=== PATIENT | female | born 1980 | race Caucasian/White ===

== ENCOUNTER 2020-11-05 09:07 | Emergency (ER) | payer OTHER ==
[~2020-11-05] VITALS: Ht 175.3 cm; Wt 81.6 kg
[~2020-11-05 09:07] MED LIST: KETO10TA2 PO; PRENATAL TABLE1 EAC1 PO; TAMS0.4C PO
== END 2020-11-05 16:13 | disposition home or self-care (01) ==
LOC: ER 09:07
DX: R10.31 Right lower quadrant pain (principal)

== ENCOUNTER 2021-01-14 20:09 | Inpatient (IN) | payer OTHER ==
[~2021-01-14] VITALS: Ht 175.3 cm; Wt 81.6 kg
[2021-01-14] MEDS ORDERED: AYGESTIN5 MG (20:27)
== END 2021-01-22 18:27 | disposition home or self-care (01) | DRG 743 ==
LOC: ER 20:09 → OB/GYN 01-15 18:20
PROVIDERS: ADMIT Student in an Organized Health Care Education/Training Program; ATTEND Student in an Organized Health Care Education/Training Program
PROC: 0UDB8ZX Extraction of Endometrium, Via Natural or Artificial Opening Endoscopic, Diagnostic (ICD-10-PCS; 2021-01-16)
PROC: 30233N1 Transfusion of Nonautologous Red Blood Cells into Peripheral Vein, Percutaneous Approach (ICD-10-PCS; 2021-01-16)
PROC: 0UB70ZZ Excision of Bilateral Fallopian Tubes, Open Approach (ICD-10-PCS; 2021-01-18)
PROC: 0UT90ZZ Resection of Uterus, Open Approach (ICD-10-PCS; principal; 2021-01-18 12:00)
DX: N72 Inflammatory disease of cervix uteri (principal); D64.9 Anemia, unspecified; N80.0 Endometriosis of uterus; D25.1 Intramural leiomyoma of uterus; N84.0 Polyp of corpus uteri; N83.8 Other noninflammatory disorders of ovary, fallopian tube and broad ligament; N93.8 Other specified abnormal uterine and vaginal bleeding